=== PATIENT | female | born 1960 ===

== ENCOUNTER 2016-07-31 12:29 | Emergency (ER) | payer MEDICAID ==
[2016-07-31 12:30] VITALS: BMI 29.6
[2016-07-31 12:35] VITALS: BP 115/75; PULSE 88; RESP 20; TEMP 98; O2SAT 98
[2016-07-31] MEDS ORDERED: Sodium Chloride 0.9% 1,000 ML IV STA (13:30)
--- NOTE | 2016-07-31 13:33 | ED PDOC ---
HPI: Female Pain Time Seen by Provider: 07/31/16 12:50 Chief Complaint (Nursing): Abdominal Pain Chief Complaint (Provider): flank pain History Per: Patient History/Exam Limitations: no limitations Onset/Duration Of Symptoms: Days (2) Current Symptoms Are (Timing): Still Present Quality Of Discomfort: Sharp, Cramping, Stabbing Associated Symptoms: Fever, Chills, Nausea, Back Pain (b/l flank), Urinary Symptoms (freq/urgency//pain). denies: Vomiting, Diarrhea, Loss Of Appetite, Chest Pain, Constipation Abnormal Vaginal Bleeding: No Past Medical History Reviewed: Historical Data, Nursing Documentation, Vital Signs Vital Signs: Last Vital Signs Temp 98 F 07/31/16 12:33 Pulse 88 07/31/16 12:33 Resp 20 07/31/16 12:33 BP 115/75 07/31/16 12:33 Pulse Ox 98 07/31/16 12:33 - Medical History PMH: Arthritis, HTN, Hypothyroidism, Migraine, Osteoporosis, Pneumonia (LONG AGO ), Seizures Denies: HIV - Family History Family History: States: No Known Family Hx - Home Medications Home Medications: Ambulatory Orders Medication Instructions Recorded Raloxifene [Evista] 60 mg PO DAILY 07/13/14 levETIRAcetam [Keppra] 500 mg PO BID 07/13/14 Famotidine [Pepcid] 1 tab PO DAILY 12/19/15 Gabapentin [Neurontin] 1 cap PO BID 12/19/15 Levothyroxine [Synthroid] 1 tab PO DAILY 12/19/15 Valacyclovir HCl [Valtrex] 1 tab PO HS 12/19/15 Baclofen [Lioresal] 20 mg PO Q8 12/24/15 Nitrofurantoin Macrocrystals 100 mg PO BID #14 cap 07/31/16 [Macrobid] - Allergies Allergies/Adverse Reactions: Allergies Allergy/AdvReac Type Severity Reaction Status Date / Time Penicillins Allergy Intermediate RASH Verified 07/31/16 12:35 Review of Systems ROS Statement: Except As Marked, All Systems Reviewed And Found Negative Constitutional: Negative for: Fever, Chills Gastrointestinal: Positive for: Nausea, Vomiting, Abdominal Pain Genitourinary Female: Positive for: Dysuria Physical Exam - Reviewed Nursing Documentation Reviewed: Yes Vital Signs Reviewed: Yes - Physical Exam Appears: Positive for: Non-toxic, No Acute Distress, Uncomfortable Head Exam: Positive for: ATRAUMATIC, NORMAL INSPECTION, NORMOCEPHALIC Skin: Positive for: Normal Color, Warm, DRY Cardiovascular/Chest: Positive for: Regular Rate, Rhythm Respiratory: Positive for: CNT, Normal Breath Sounds Gastrointestinal/Abdominal: Positive for: Bowel Sounds, Soft, Tenderness ( suprapubic) Back: Positive for: L CVA Tenderness, R CVA Tenderness Extremity: Positive for: Normal ROM Neurologic/Psych: Positive for: Alert, Oriented - Laboratory Results Result Diagrams: 07/31/16 13:40 07/31/16 13:40 - ECG O2 Sat by Pulse Oximetry: 98 - Progress ED Course And Treament: impression: renal stone vs UTI will need CT w/o contrast r/o stone and UA/Cbc/MCP will be given NS fluids and zofran, torodol. Medical Decision Making Medical Decision Making: UA: negative, CT scan: negative however concerns for UTI and will Rx macorbid and advised to f.u with pmd will send urine C&S Disposition - Clinical Impression Clinical Impression: Dysuria - Patient ED Disposition Is Patient to be Admitted: No Counseled Patient/Family Regarding: Studies Performed, Diagnosis, Need For Followup, Rx Given - Disposition Disposition: Routine/Home Disposition Time: 15:01 Condition: STABLE Prescriptions: Nitrofurantoin Macrocrystals [Macrobid] 100 mg PO BID #14 cap Instructions: Dysuria (ED)
[2016-07-31 14:02] LABS: BASO # 0.1 K/uL (0.0-0.2); BASO % 1.1 % (0.0-2.0); EOS # 0.3 K/uL (0.0-0.7); EOS % 3.7 % (0.0-4.0); HEMATOCRIT 40.6 % (34.0-47.0); LYMPH # 2.2 K/uL (1.0-4.3); LYMPH % 24.5 % (20.0-40.0); MEAN CELL VOLUME 86.2 fl (81.0-99.0); MEAN CORPUSCULAR HGB CONC 33.6 g/dL (33.0-37.0); MEAN PLATELET VOLUME 9.3 fl (7.2-11.7); MONO # 0.8 K/uL (0.0-0.8); MONO % 9.5 % (0.0-10.0); NEUT # 5.4 K/uL (1.8-7.0); NEUT % 61.2 % (50.0-75.0); NRBC % 0.3 % (0.0-0.0); RED CELL DISTRIBUTION WIDTH 13.3 % (11.5-14.5); WHITE BLOOD COUNT 8.9 K/uL (4.8-10.8)
[2016-07-31 14:03] LABS: RBC URINE 1 /hpf (0-3); URINE BILIRUBIN NEGATIVE (NEGATIVE); URINE BLOOD NEGATIVE (NEGATIVE); URINE COLOR STRAW (YELLOW); URINE GLUCOSE (UA) NEG (Normal); URINE KETONE NEGATIVE (NEGATIVE); URINE LEUKOCYTE ESTERASE NEG Leu/uL (Negative); URINE PROTEIN NEGATIVE (NEGATIVE); URINE UROBILINOGEN 0.2-1.0 mg/dL (0.2-1.0); WBC URINE < 1 /hpf (0-5)
[2016-07-31 14:12] LABS: ALB/GLOB RATIO 1.3 (1.0-2.1); ALKALINE PHOSPHATASE 99 U/L (38-126); ALT/SGPT 44 U/L (9-52); AST/SGOT 34 U/L (14-36); BILIRUBIN,TOTAL 0.2 mg/dl (0.2-1.3); BLOOD UREA NITROGEN 12 mg/dl (7-17); CALCIUM 9.3 mg/dL (8.4-10.2); CARBON DIOXIDE 23 mmol/L (22-30); CHLORIDE 108 mmol/L (98-107); GFR AFRICAN-AMERICAN > 60; GLUCOSE,RANDOM 87 mg/dL (65-105); SODIUM 141 mmol/l (132-148); TOTAL PROTEIN 7.8 G/DL (6.3-8.2)
--- NOTE | 2016-07-31 14:49 | CT ---
PROCEDURE: CT Abdomen and Pelvis without contrast. HISTORY: severe b/l flank pain with dysuria/fever/nasuea COMPARISON: None. TECHNIQUE: Contiguous axial images of the abdomen and pelvis. No oral or IV contrast given. Coronal and Sagittal reformats generated. Please note that due to lack of intravenous and oral contrast, evaluation of soft tissue structures and bowel is limited. Radiation dose: Total exam DLP = 737.09 mGy-cm. This CT exam was performed using one or more of the following dose reduction techniques: Automated exposure control, adjustment of the mA and/or kV according to patient size, and/or use of iterative reconstruction technique. FINDINGS: LOWER THORAX: Unremarkable. LIVER: Unremarkable. No gross lesion or ductal dilatation. GALLBLADDER AND BILE DUCTS: Unremarkable. PANCREAS: Unremarkable. No mass. No ductal dilatation. SPLEEN: Unremarkable. No splenomegaly. ADRENALS: Unremarkable. KIDNEYS AND URETERS: Unremarkable. No stone or hydronephrosis. BLADDER: Grossly unremarkable. REPRODUCTIVE: Please note that evaluation of gynecologic organs is not optimal on CT imaging. APPENDIX: Unremarkable. BOWEL: The colon is suboptimally evaluated due to its near completely collapsed state. PERITONEUM: No significant free fluid or air. LYMPH NODES: Unremarkable. No enlarged lymph nodes. VASCULATURE: Unremarkable. No aortic aneurysm. BONES: No fracture or destructive lesion. OTHER FINDINGS: None. IMPRESSION: No nephroureterolithiasis. Suboptimally evaluated bowel.
== END 2016-07-31 15:20 | disposition home or self-care (01) ==
LOC: H.ER 12:29
DX: R30.0 Dysuria (principal); R10.9 Unspecified abdominal pain